=== PATIENT | male | born 1950 | race Two or more races ===

== ENCOUNTER 2018-10-07 08:45 | Emergency (ER) | payer OTHER ==
[~2018-10-07] VITALS: Ht 188 cm; Wt 86.2 kg
== END 2018-10-07 14:32 | disposition home or self-care (01) ==
LOC: ER 08:45
DX: S70.12XA Contusion of left thigh, initial encounter (principal); W18.39XA Other fall on same level, initial encounter; Y93.89 Activity, other specified; Y92.89 Other specified places as the place of occurrence of the external cause; Y99.8 Other external cause status; D66 Hereditary factor VIII deficiency

== ENCOUNTER 2023-03-04 20:27 | Emergency (ER) | payer OTHER ==
[~2023-03-04] VITALS: Ht 193 cm; Wt 90.7 kg
== END 2023-03-04 21:59 | disposition home or self-care (01) ==
LOC: ER 20:27
DX: S89.82XA Other specified injuries of left lower leg, initial encounter (principal); W18.39XA Other fall on same level, initial encounter; Y93.89 Activity, other specified; Y92.89 Other specified places as the place of occurrence of the external cause; Z88.0 Allergy status to penicillin; R60.0 Localized edema

== ENCOUNTER 2023-03-05 08:41 | Outpatient (CLI) | payer OTHER | END 2023-03-05 08:44 | disposition home or self-care (01) | LOC: NUCLEAR 08:41 | PROVIDERS: ATTEND General Practice | DX: R60.0 Localized edema (principal) ==

== ENCOUNTER 2023-03-05 10:09 | Outpatient (CLI) | payer OTHER | END 2023-03-05 10:30 | disposition home or self-care (01) | LOC: WOUND MED 10:09 | PROVIDERS: ATTEND Specialist | DX: S89.82XA Other specified injuries of left lower leg, initial encounter (principal); L97.922 Non-pressure chronic ulcer of unspecified part of left lower leg with fat layer exposed | CPT/HCPCS: 11042; A4927; A6199; A6222; A6223; G0463 ==

== ENCOUNTER 2023-03-12 09:09 | Outpatient (CLI) | payer OTHER | END 2023-03-12 10:00 | disposition home or self-care (01) | LOC: WOUND MED 09:09 | PROVIDERS: ATTEND Specialist | DX: S80.12XA Contusion of left lower leg, initial encounter (principal); L97.922 Non-pressure chronic ulcer of unspecified part of left lower leg with fat layer exposed | CPT/HCPCS: 11042; A4927; A6219; A6223; A6251; G0463 ==

== ENCOUNTER 2023-03-19 09:47 | Outpatient (CLI) | payer OTHER | END 2023-03-19 10:00 | disposition home or self-care (01) | LOC: WOUND MED 09:47 | PROVIDERS: ATTEND Specialist | DX: L89.899 Pressure ulcer of other site, unspecified stage (principal); S80.11XA Contusion of right lower leg, initial encounter | CPT/HCPCS: 11042; A4927; A6219; A6223; A6251; G0463 ==

== ENCOUNTER 2023-03-26 09:28 | Outpatient (CLI) | payer OTHER | END 2023-03-26 10:00 | disposition home or self-care (01) | LOC: WOUND MED 09:28 | PROVIDERS: ATTEND Specialist | DX: L97.922 Non-pressure chronic ulcer of unspecified part of left lower leg with fat layer exposed (principal) | CPT/HCPCS: 11042; A4927; A6199; A6219; A6223; G0463 ==

== ENCOUNTER 2023-03-30 08:44 | Outpatient (CLI) | payer OTHER | END 2023-03-30 10:00 | disposition home or self-care (01) | LOC: WOUND MED 08:44 | PROVIDERS: ATTEND Specialist | DX: L97.912 Non-pressure chronic ulcer of unspecified part of right lower leg with fat layer exposed (principal) | CPT/HCPCS: 97602; A4927; A6199; A6219; A6223; G0463 ==

== ENCOUNTER → 2023-04-02 | Outpatient (CLI) | payer OTHER | END | disposition home or self-care (01) | LOC: WOUND MED 08:45 | PROVIDERS: ATTEND Specialist | DX: L97.922 Non-pressure chronic ulcer of unspecified part of left lower leg with fat layer exposed (principal) | CPT/HCPCS: 11042; A4927; A6219; A6223; G0463 ==

== ENCOUNTER → 2023-04-09 | Outpatient (CLI) | payer OTHER | END | disposition home or self-care (01) | LOC: WOUND MED 08:45 | PROVIDERS: ATTEND Specialist | DX: L97.922 Non-pressure chronic ulcer of unspecified part of left lower leg with fat layer exposed (principal) | CPT/HCPCS: 11042; A4927; A6219; A6223; G0463 ==

== ENCOUNTER 2023-04-13 08:28 | Outpatient (CLI) | payer OTHER | END 2023-04-13 10:00 | disposition home or self-care (01) | LOC: WOUND MED 08:28 | PROVIDERS: ATTEND Specialist | DX: L97.922 Non-pressure chronic ulcer of unspecified part of left lower leg with fat layer exposed (principal) | CPT/HCPCS: 97602; A4927; A6219; A6223; G0463 ==

== ENCOUNTER 2023-04-20 08:50 | Outpatient (CLI) | payer OTHER | END 2023-04-20 10:00 | disposition home or self-care (01) | LOC: WOUND MED 08:50 | PROVIDERS: ATTEND Specialist | DX: L97.922 Non-pressure chronic ulcer of unspecified part of left lower leg with fat layer exposed (principal) | CPT/HCPCS: 11042; A4927; A6199; A6219; A6223; G0463 ==

== ENCOUNTER 2023-04-23 09:41 | Outpatient (CLI) | payer OTHER | END 2023-04-23 10:00 | disposition home or self-care (01) | LOC: WOUND MED 09:41 | PROVIDERS: ATTEND Specialist | DX: L97.922 Non-pressure chronic ulcer of unspecified part of left lower leg with fat layer exposed (principal) | CPT/HCPCS: 11042; A4927; A6199; A6219; A6223; G0463 ==

== ENCOUNTER 2023-04-27 07:24 | Outpatient (CLI) | payer OTHER | END 2023-04-27 10:00 | disposition home or self-care (01) | LOC: WOUND MED 07:24 | PROVIDERS: ATTEND Specialist | DX: L97.822 Non-pressure chronic ulcer of other part of left lower leg with fat layer exposed (principal) | CPT/HCPCS: 97602; A4927; A6199; A6219; A6223; G0463 ==

== ENCOUNTER 2023-04-30 10:22 | Outpatient (CLI) | payer OTHER | END 2023-04-30 11:00 | disposition home or self-care (01) | LOC: WOUND MED 10:22 | PROVIDERS: ATTEND Specialist | DX: E11.622 Type 2 diabetes mellitus with other skin ulcer (principal); L97.922 Non-pressure chronic ulcer of unspecified part of left lower leg with fat layer exposed; Z79.4 Long term (current) use of insulin | CPT/HCPCS: 11042; A4927; A6021; A6219; G0463 ==

== ENCOUNTER 2023-05-04 07:36 | Outpatient (CLI) | payer OTHER | END 2023-05-04 08:00 | disposition home or self-care (01) | LOC: WOUND MED 07:36 | PROVIDERS: ATTEND Specialist | DX: L97.822 Non-pressure chronic ulcer of other part of left lower leg with fat layer exposed (principal) | CPT/HCPCS: 97602; A4927; A6021; A6219; A6223; G0463 ==

== ENCOUNTER 2023-05-07 11:47 | Outpatient (CLI) | payer OTHER | END 2023-05-07 13:00 | disposition home or self-care (01) | LOC: WOUND MED 11:47 | PROVIDERS: ATTEND Specialist | DX: L97.922 Non-pressure chronic ulcer of unspecified part of left lower leg with fat layer exposed (principal) | CPT/HCPCS: 11042; A4927; A6219; A6223; G0463 ==

== ENCOUNTER 2023-05-11 07:33 | Outpatient (CLI) | payer OTHER | END 2023-05-11 12:00 | disposition home or self-care (01) | LOC: WOUND MED 07:33 | PROVIDERS: ATTEND Specialist | DX: L97.822 Non-pressure chronic ulcer of other part of left lower leg with fat layer exposed (principal) | CPT/HCPCS: 11042; A4927; A6021; A6219; A6223; G0463 ==

== ENCOUNTER 2023-05-14 11:49 | Outpatient (CLI) | payer OTHER | END 2023-05-14 13:00 | disposition home or self-care (01) | LOC: WOUND MED 11:49 | PROVIDERS: ATTEND Specialist | DX: L97.922 Non-pressure chronic ulcer of unspecified part of left lower leg with fat layer exposed (principal) | CPT/HCPCS: 11042; A4927; A6021; A6219; A6223; G0463 ==

== ENCOUNTER 2023-05-18 08:02 | Outpatient (CLI) | payer OTHER | END 2023-05-18 10:00 | disposition home or self-care (01) | LOC: WOUND MED 08:02 | PROVIDERS: ATTEND Specialist | DX: L97.922 Non-pressure chronic ulcer of unspecified part of left lower leg with fat layer exposed (principal) | CPT/HCPCS: 97602; A4927; A6219; A6223; A6248; G0463 ==

== ENCOUNTER 2023-05-21 09:43 | Outpatient (CLI) | payer OTHER | END 2023-05-21 11:00 | disposition home or self-care (01) | LOC: WOUND MED 09:43 | PROVIDERS: ATTEND Specialist | DX: L97.528 Non-pressure chronic ulcer of other part of left foot with other specified severity (principal) | CPT/HCPCS: 97602; A4927; A6223; G0463 ==